=== PATIENT | female | born 1985 | race Caucasian/White ===

== ENCOUNTER 2022-12-28 08:43 | Emergency (ER) | payer BC, SELFPAY ==
[2022-12-28 08:45] VITALS: BP 162/108; PULSE 92; RESP 14; TEMP 36.4; O2SAT 98; BMI 60.3
--- NOTE | 2022-12-28 08:51 | ED.VIS.LOWEX ---
HPI History of Present Illness Chief Complaint: Lower Extremity Injury Detail of Chief Complaint: Injury right leg December 04 Informant: patient Occured/Mechanism Mechanism/Context: Yes same level fall Comment: Patient was walking. Her left foot hit object. She fell forward injuring the anterior proximal right leg and complains of numbness since incident Onset/Context/Timing Onset: Weeks (Greater than 3 weeks ago) Context: Sudden Onset Timing: Continuous Location: Fullness proximal anterior leg and numbness lateral aspect of the right leg Current Severity: Mild Maximum Severity: Moderate Worsened by: Pain is worse with palpation over bruised area Relieved by: Nothing Associated Symptoms Associated Symptoms: Positive for Parasthesia (Peroneal nerve distribution); Negative for Weakness or Loss of Funtion Narrative Narrative: Patient is a 37-year-old woman who presents because of numbness oozing with pain proximal anterior right leg. She is able to ambulate. She has no pain with weightbearing. She has pain if she palpates the bruised area. She denies foot drop. She has no other complaints. She is not on an anticoagulant Prior similar symptoms: No Recent Illness/Hospitalization: No PFSH PFSH Medical History no medical history Allergy/AdvReac Type Severity Reaction Status Date / Time Penicillins Allergy Hives Verified 12/28/22 08:44 Social History Smoking Status: Unknown if ever smoked ROS ROS ED Constitutional Constitutional ED: Denies chills or fever(s) Integumentary Reports other Details: Bruise proximal anterior right leg ; Denies Abrasions or rash Neurologic Neurologic: Reports paresthesias; Denies headache(s) or weakness Hematologic/Lymphatic Hematologic/Lymphatic: Denies easy bleeding or easy bruising EXAM Physical Exam Const Vital Signs: 12/28/22 08:45 Temperature 97.6 F L Temperature Source Temporal Pulse Rate 92 Respiratory Rate 14 Blood Pressure 162/108 H Blood Pressure Mean 126 Pulse Ox 98 Oxygen Delivery Method Room Air Positive well nourished, well developed and obese General Appearance ED: well developed and NAD Nutritional Appearance: obese HEENT Reports moist mucous membranes normocephalic and atraumatic Eyes PERRL Eyes Narrative: Extraocular muscles are intact. Resp normal respiratory effort Cardio regular rate and regular rhythm Extremity Negative for normal to inspection Extremity Narrative: There is soft tissue swelling and bruising of the proximal anterior right leg. The patella is not ballotable. There is no palpable effusion. There is no laxity with varus valgus stress testing. There is no joint line tenderness. Arjun's test is negative. Modified Taya's test is limited due to body habitus. There is no pain to palpation the popliteal fossa. There is no pulsatile mass. There is pain outpatient over the bruised area. PT pulses palpable. General Extremety ED: Negative for edema or weight-bearing difficulty General Extremity: Negative for edema or weight-bearing difficulty Neuro oriented x3, CN's II-XII intact bilaterally, moves all extremities and No no sensory deficits noted Neuro Narrative: Altered sensation lateral aspect of the right leg Sensorium / Orientation: alert Psych mental status grossly normal Skin Skin Narrative: Bruising of the proximal anterior right leg MDM MDM MDM Narrative Medical decision making narrative: Patient has a contusion. Since this happened 3 weeks ago she has no point bony tenderness and no laxity of the knee with stress testing and no evidence of effusion imaging was not obtained. Patient was referred to Dr. Bardales since she does not have a physician. Her blood pressure was noted to be elevated. Discharge Plan Triage Chief Complaint: Lower Extremity Injury ED Provider: Darvin Fournier Dx/Rx/DC Orders Clinical Impression: Elevated blood pressure reading, Neuropraxia of right lower extremity, Contusion of right lower leg, initial encounter Instructions: ED Contusion, Lower Extremity, ED Hypertension, To Be Confirmed Referrals: Christa Dodson MD [Med Staff - Active Staff] - 1-2 Weeks Activity Restrictions/Additional Instructions: Recommend contacting Dr. Dodson for follow-up visit to reassess your blood pressure. Your blood pressure reading in the emergency department is 162/108. Disposition Disposition: Home, Self Care
[2022-12-28 09:04] VITALS: BP 147/81
== END 2022-12-28 09:11 | disposition home or self-care (01) ==
LOC: ED 09:08
PROVIDERS: Emergency Provider Emergency Medicine; Visit Provider Emergency Medicine
DX: R03.0 Elevated blood-pressure reading, without diagnosis of hypertension (principal); S80.11XA Contusion of right lower leg, initial encounter; E66.9 Obesity, unspecified; W18.30XA Fall on same level, unspecified, initial encounter
CPT/HCPCS: 99282